=== PATIENT | male | born 1975 | race Hispanic/Latino ===

== ENCOUNTER 2017-01-18 10:05 | Emergency (ER) | payer OTHER ==
[~2017-01-18] VITALS: Ht 162.6 cm; Wt 62.2 kg
[2017-01-18 11:24] LABS: HEMATOCRIT 49.8 % (38.0-50.0); MCH 32.1 PG (29.0-34.0); MCHC 33.3 G/DL (30.0-36.0); MCV 96.3 FL (86-99); MEAN PLAT.VOLUME 10.4 uM^3 (9.0-12.4); PLATELET COUNT 230 K/uL (156-360); RBC DIS.WIDTH-CV 12.8 % (11.8-14.6); RBC DIS.WIDTH-SD 46.1 % (39-53); RED BLOOD COUNT 5.17 M/uL (4.00-5.50); WHITE BLOOD COUNT 10.4 K/uL (4.1-10.2)
[2017-01-18 11:35] LABS: CHLORIDE 106 mEq/L (99-109); POTASSIUM 4.7 mEq/L (3.7-5.4); SODIUM 141 mEq/L (136-147)
[2017-01-18 11:38] LABS: GLUCOSE 120 mg/dL (70-99)
[2017-01-18 11:39] LABS: ANION GAP 6 MEQ/L (2-14)
[2017-01-18 11:40] LABS: TOTAL BILIRUBIN 0.6 mg/dL (0.0-1.0)
[2017-01-18 11:41] LABS: ALKALINE PHOSPHATASE 72 IU/L (3-129); GFR ESTIMATE (CALCULATED) > 59 mL/min/
[2017-01-18 11:43] LABS: UREA NITROGEN (BUN) 9 mg/dL (9-23)
[2017-01-18] MEDS ORDERED: TRAMADOL HCL50 MG PO (12:11)
[2017-01-18 12:32] VITALS: BP 121/71
== END 2017-01-18 12:33 | disposition home or self-care (01) ==
LOC: EME 10:05
DX: L03.115 Cellulitis of right lower limb (principal); F17.200 Nicotine dependence, unspecified, uncomplicated
CPT/HCPCS: 80053; 85027; 99281; 99285